=== PATIENT | male | born 1975 | race Caucasian/White ===

== ENCOUNTER 2016-09-15 21:49 | Emergency (ER) | payer BC, MEDICARE ==
[2016-09-16 00:27] LABS: RED BLOOD COUNT 4.83 M/UL (4.20-5.50)
[2016-09-16 00:50] LABS: BUN/CREATININE RATIO 14 (0-10)
== END 2016-09-16 04:30 | disposition home or self-care (01) ==
LOC: ER1 21:49
PROVIDERS: Physician Assistant
DX: R07.9 Chest pain, unspecified (principal); E78.5 Hyperlipidemia, unspecified; I10 Essential (primary) hypertension; F41.9 Anxiety disorder, unspecified; E66.01 Morbid (severe) obesity due to excess calories; G47.33 Obstructive sleep apnea (adult) (pediatric); F17.210 Nicotine dependence, cigarettes, uncomplicated; Z88.0 Allergy status to penicillin; Z79.899 Other long term (current) drug therapy
CPT/HCPCS: 36415; 71020; 80053; 82550; 82553; 83874; 83880; 84484; 85025; 93005; 99285